=== PATIENT | female | born 1930 | race Caucasian/White ===

== ENCOUNTER 2017-09-12 22:34 | Emergency (ER) | payer OTHER ==
--- NOTE | 2017-09-12 23:36 | PDOC ---
History of Present Illness - General Chief Complaint: Foreign Body (FB) Stated Complaint: THINKS THERMOMETER IS STUCK IN RECTUM Time Seen by Provider: 09/12/17 22:51 History Source: Patient Exam Limitations: No Limitations - History of Present Illness Initial Comments: 09/12/17 23:50 This is an 86-year-old female comes in complaining of a rectal thermometer lost in her rectum. Patient said that she was taking a rectal temp and when she went to take a thermometer out she couldn't find it. Patient thinks it ended up in her rectum. Patient denies any pain or any other complaint PAST MEDICAL HISTORY: no significant history PAST SURGICAL HISTORY: no significant history FAMILY HISTORY: no pertinant history SOCIAL HISTORY: Pt lives with family and is employed. MEDICATIONS: reviewed ALLERGIES: As per nursing notes Review of Systems General: No fevers or chills, no weakness, no weight loss HEENT: No change in vision. No sore throat,. No ear pain CardioVascular: No chest pain or shortness of breath Respiratory:No cough, or wheezing. Gastrointestinal: no nausea, vomitting, diarrhea or constipation, No rectal bleeding Genitourinary: No dysuria, hematuria, or frequency Musculoskeletal: No joint or muscle pain or swelling Neurologic: No headache, vertigo, dizziness or loss of consciousness Psychiatric: nor depression Skin: No rashes or easy bruising Endocrine: no increased thirst or abnormal weight change Allergic: no skin or latex allergy All other systems reviewed and normal GENERAL: The patient is awake, alert, and fully oriented, in no acute distress. HEAD: Normal with no signs of trauma. EYES: Pupils equal, round and reactive to light, extraocular movements intact, sclera anicteric, conjunctiva clear. EXTREMITIES: Normal range of motion, no edema. RECTUM: There is a moderate amount of soft stool in the rectal vault unable to palpate any foreign body unable to reach beyond the rectal vault. NEUROLOGICAL: Normal speech, normal gait. grossly intact PSYCH: Normal mood, normal affect. SKIN: Warm, Dry, normal turgor, no rashes or lesions noted. 09/13/17 00:14 X-ray no foreign body Assessment and plan: This is an 78-year-old female who comes in complaining of a thermometer lost in her rectum. On my exam I was unable to help a thermometer foreign body and x-ray was negative for any foreign body. Patient discharged home will follow-up with her primary care doctor Past History - Past Medical History Allergies/Adverse Reactions: Allergies Allergy/AdvReac Type Severity Reaction Status Date / Time No Known Allergies Allergy Verified 10/28/14 19:19 Home Medications: Ambulatory Orders Carbidopa/Levodopa 25/100 [Sinemet 25/100 -] 0.5 each PO BID 04/27/14 Latanoprost [Xalatan] 0.025 ml OP HS 04/27/14 Cyclobenzaprine HCl [Flexeril -] 5 mg PO HS #7 tablet 11/01/15 Cyclobenzaprine HCl [Flexeril -] 5 mg PO HS #7 tablet 11/01/15 Sulfamethoxazole/Trimethoprim [Bactrim Ds -] 1 tab PO Q48H 11/01/15 Cancer: Yes (VULVA) CVA: No CHF: No Diabetes: Yes Disorders: Yes (FREQUENT UTI) HTN: No Hypercholesterolemia: No - Surgical History Abdominal Surgery: Yes (C- SECTION X2) Orthopedic Surgery: Yes (CERVICAL SPINE SX WITH CAGE 2007) - Suicide/Smoking/Psychosocial Hx Smoking History: Never smoked Have you smoked in the past 12 months: No If you are a former smoker, when did you quit?: greater than 40 years ago Hx Alcohol Use: No Drug/Substance Use Hx: No Substance Use Type: None Hx Substance Use Treatment: No *DC/Admit/Observation/Transfer Diagnosis at time of Disposition: Rectal foreign body Qualifiers: Encounter type: initial encounter Qualified Code(s): T18.5XXA - Foreign body in anus and rectum, initial encounter - Discharge Dispostion Disposition: HOME Condition at time of disposition: Stable Admit: No - Referrals - Patient Instructions Additional Instructions: Return to the emergency department immediately with ANY new, persistent or worsening symptoms. Continue any medications as previously prescribed by your physician. You should follow up with your primary doctor as soon as possible regarding today's emergency department visit. . Please make sure your doctor reviews the results of your emergency evaluation. Thank you for coming to the Emergency Department today for your care. It was a pleasure to see you today. Please note that your evaluation is INCOMPLETE until you follow-up with your doctor. - Post Discharge Activity
[2017-09-13 00:20] VITALS: BP 170/71; PULSE 97; TEMP 97.8; BMI 28.8
== END 2017-09-13 00:21 | disposition home or self-care (01) ==
LOC: FER 22:34
DX: T18.5XXA Foreign body in anus and rectum, initial encounter (principal); X58.XXXA Exposure to other specified factors, initial encounter; Y93.89 Activity, other specified; Y92.9 Unspecified place or not applicable; E11.9 Type 2 diabetes mellitus without complications; Z87.412 Personal history of vulvar dysplasia
CPT/HCPCS: 74190-TC-FY; 99281-25

== ENCOUNTER 2017-10-16 20:15 | Emergency (ER) | payer OTHER ==
[2017-10-16 20:23] VITALS: BMI 28.9
--- NOTE | 2017-10-16 20:46 | PDOC ---
History of Present Illness - General History Source: Patient, Family Exam Limitations: No Limitations - History of Present Illness Initial Comments: 10/16/17 20:57 The patient is a 86 year old female with past medical history of Pneumonia (2X) , Fungal pneumonia, mild parkinsons disease, cancer (Vulva), arthritis, diabetes , chronic UTI's presents to the emergency department with nose bleed. The patient reports a history of frequent bleeding from the right nostril for the past few weeks, with episodes lasting about a half hour resolving with pressure. The patient reports about an hour prior to emergency department the patient started to bleed predominantly from the right nostril without stopping. During evaluation with the doctor the patient coughed up a large clot. The patient was discharged from [facility] on , where she was completing a short stay rehabilitation. Patient was admitted at [facility] a month ago with fungal pneumonia. Denies any sob, chest pain, vertigo or dizziness. Denies any fever, chills, nausea, or vomiting. Denies any diarrhea or constipation. Denies any history of anemia. Denies any dysuria, hematuria, frequency or urgency to urinate. Allergies: NKDA Surgical history: (2X), Cervical spine SX with CAGE (2006) PCP: Dr. Ad Coley <Nicolle Zaragoza - Last Filed: 10/16/17 21:19> <Chiara Abbasi - Last Filed: 10/17/17 01:17> - General Chief Complaint: Nasal Bleeding Stated Complaint: NOSEBLEED Time Seen by Provider: 10/16/17 20:21 Past History <Nicolle Zaragoza - Last Filed: 10/16/17 21:19> - Past Medical History Cancer: Yes (VULVA) CVA: No COPD: No CHF: No Diabetes: Yes Disorders: Yes (FREQUENT UTI) HTN: No Hypercholesterolemia: No - Surgical History Abdominal Surgery: Yes (C- SECTION X2) Orthopedic Surgery: Yes (CERVICAL SPINE SX WITH CAGE 2006) - Suicide/Smoking/Psychosocial Hx Smoking History: Never smoked Have you smoked in the past 12 months: No If you are a former smoker, when did you quit?: greater than 40 years ago Hx Alcohol Use: No Drug/Substance Use Hx: No Substance Use Type: None Hx Substance Use Treatment: No <Chiara Abbasi - Last Filed: 10/17/17 01:17> - Past Medical History Allergies/Adverse Reactions: Allergies Allergy/AdvReac Type Severity Reaction Status Date / Time No Known Allergies Allergy Verified 09/17/17 17:27 Home Medications: Ambulatory Orders Carbidopa/Levodopa 25/100 [Sinemet 25/100 -] 0.5 each PO ASDIR 04/27/14 Latanoprost [Xalatan] 0.025 ml OP HS 04/27/14 Brimonidine Tartrate [Alphagan 0.2% -] 1 drop OP BID 09/17/17 Metformin HCl [Glucophage] 500 mg PO DAILY 09/17/17 Lactobacillus Acidophilus [Bacid -] 1 tab PO DAILY #0 tab 09/23/17 Zolpidem Tartrate [Ambien] 5 mg PO HS 10/16/17 Review of Systems - Review of Systems Able to Perform ROS?: Yes Comments:: 10/16/17 20:59 CONSTITUTIONAL: Absent: fever, no chills, no fatigue EYES: Absent: visual changes ENT: (+) Nose bleed Absent: ear pain, no sore throat CARDIOVASCULAR: Absent: chest pain, no palpitations RESPIRATORY: Absent: cough, no SOB GI: Absent: abdominal pain, no nausea, no vomiting, no constipation, no diarrhea GENITOURINARY: Absent: dysuria, no frequency, no hematuria MUSKULOSKELETAL: Absent: back pain, no arthralgia, no myalgia SKIN: Absent: rash NEURO: Absent: headache <Nicolle Zaragoza - Last Filed: 10/16/17 21:19> *Physical Exam - Vital Signs Last Vital Signs Temp Pulse Resp BP Pulse Ox 115 H 18 167/98 97 10/16/17 20:21 10/16/17 20:21 10/16/17 20:21 10/16/17 20:21 - Physical Exam Comments: 10/16/17 20:58 GENERAL: The patient is awake, alert, and fully oriented, in no acute distress. HEAD: Normal with no signs of trauma. EYES: Pupils equal, round and reactive to light, extraocular movements intact, sclera anicteric, conjunctiva clear with no pallor. ENT: (+) Small amount of blood in the right nostril area, with mild oozing in the medial anterior wall, no clots. No positile bleeding noted. No masses seen. Mouth: Normal with no masses or other abnormalities. Oropharynx: No masses or edema noted. <Nicolle Zaragoza - Last Filed: 10/16/17 21:19> - Vital Signs Last Vital Signs Temp Pulse Resp BP Pulse Ox 115 H 18 167/98 97 10/16/17 20:21 10/16/17 20:21 10/16/17 20:21 10/16/17 20:21 <Chiara Abbasi - Last Filed: 10/17/17 01:17> ED Treatment Course - LABORATORY CBC & Chemistry Diagram: 10/16/17 20:50 <Nicolle Zaragoza - Last Filed: 10/16/17 21:19> - LABORATORY CBC & Chemistry Diagram: 10/16/17 20:50 <Chiara Abbasi - Last Filed: 10/17/17 01:17> Medical Decision Making - Medical Decision Making Documentation has been prepared under my direction and personally reviewed by me in its entirety. I attest that this documented accurately reflects all work, treatment, procedures and medical decision making performed by me. As noted above, this 86-year-old woman presents with a few week history of intermittent minor episodes of epistaxis (right nostril) and one hour history of more moderate right sided nosebleed. No history of trauma or other easy bruising/bleeding. Recent history notable for fungal pneumonia for which she was hospitalized here one month ago. Patient was just discharged from short- term rehabilitation 2 days ago. Exam as noted. Inflatable anterior epistaxis tampon (4.5 centimeter) gently inserted into the right nostril and fully inflated. Patient tolerated well. Device secured to right cheek with adhesive tape. While patient was being observed, CBC and INR was evaluated. These lab tests were essentially normal without evidence of anemia, thrombocytopenia or coagulopathy. Patient continued to do well without further epistaxis. She is comfortable and without further complaints. She was discharged with referral information for ENT group (Dr. Crystal et al) with whom she should be evaluated within 48 hours. She should keep her head elevated and avoid blowing her nose. She should return to the ER if she has any persistent recurrent nosebleed <Chiara Abbasi - Last Filed: 10/17/17 01:17> *DC/Admit/Observation/Transfer - Attestations Scribe Attestion: 10/16/17 20:59 Documentation prepared by Nicolle Zaragoza, acting as medical coordinator pesticide use for Chiara Abbasi MD. <Nicolle Zaragoza - Last Filed: 10/16/17 21:19> <Chiara Abbasi - Last Filed: 10/17/17 01:17> Diagnosis at time of Disposition: Epistaxis - Discharge Dispostion Disposition: HOME Condition at time of disposition: Stable - Referrals Referrals: Ad Coley MD [Primary Care Provider] - Darius Crystal MD [Staff Physician] - 2 Days - Patient Instructions Printed Discharge Instructions: Nosebleed Additional Instructions: Keep packing in place Elevate head as much as possible Avoid blowing nose If bleeding recurs, pinch nose continuously for 15 minutes; if bleeding persists return to ER Follow-up with ENT doctor (Dr. Crystal group) within 48 hours; call office in the morning, WednesdayOctober 18 to arrange Follow-up with Dr. Coley scheduled - Post Discharge Activity
[2017-10-16 21:06] LABS: BASO % 0.3 % (0-2.0); EOS % 0.6 % (0-4.5); HEMATOCRIT 38.7 % (32.4-45.2); HEMOGLOBIN 13.6 GM/dl (10.7-15.3); LYMPH % 10.8 % (8-40); MCH 31.9 pg (25.7-33.7); MCHC 35.1 g/dl (32.0-36.0); MEAN PLT VOLUME 7.6 fl (7.5-11.1); MONO % 6.2 % (3.8-10.2); NEUT % 82.1 % (42.8-82.8); PLATELET COUNT 228 K/MM3 (134-434); RBC 4.25 M/mm3 (3.60-5.2); RDW 13.3 % (11.6-15.6); WHITE BLOOD COUNT 8.4 K/mm3 (4.0-10.8)
[2017-10-16 21:16] LABS: INR 1.09 (0.82-1.09); PROTHROMBIN TIME (PATIENT) 12.2 SEC (10.2-13.0)
[2017-10-16 21:23] VITALS: BP 126/63; PULSE 92; TEMP 97.5
== END 2017-10-16 21:26 | disposition home or self-care (01) ==
LOC: FER 20:15
PROC: 2Y41X5Z Packing of Nasal Region using Packing Material (ICD-10-PCS; principal; 2017-10-16)
DX: R04.0 Epistaxis (principal); E11.9 Type 2 diabetes mellitus without complications; Z85.89 Personal history of malignant neoplasm of other organs and systems; Z87.440 Personal history of urinary (tract) infections; Z87.891 Personal history of nicotine dependence
CPT/HCPCS: 36415; 85025; 85610; 99282-25